=== PATIENT | female | born 1940 | race American Indian/Alaskan Native ===

== ENCOUNTER → 2021-08-06 | Outpatient (CLI) | payer OTHER ==
[~2021-08-06] MED LIST: ACETAMINOPHEN500 MG PO; ADULT LOW DOSE81 MG PO; CAL MAG ZINC +1 EACH PO; CARVEDILOL3.125 MG PO; CARVEDILOL6.25 MG PO; FISH OIL 1,2001 EAC4 PO; IBUPROFEN 200200 M1 PO; LISINOPRIL10 MG PO; MIRALAX119 GM PO; OMEPRAZOLE40 MG PO; OXAZEPAM 15 MG15 M1 PO; TIROSINT100 MCG PO; TRAMADOL 50 MG50 MG PO; TYLENOL EXTRA500 MG PO; VITAMIN D400 UNI1 PO; ZETIA10 MG PO; ZOCOR40 MG PO
[2021-08-06 14:19] LABS: HEMATOCRIT 45.2 % (37.0-47.0); HEMOGLOBIN 15.3 gm/dL (12.0-15.0); MCH 34.5 pg (26.0-34.0); MCHC 33.9 g/dL (28.0-37.0); MCV 101.7 fL (80.0-100.0); RBC 4.45 mil/uL (4.20-5.00); WBC 7.8 thou/uL (4.0-11.0)
[2021-08-06 14:33] LABS: ALBUMIN 3.5 g/dL (3.4-5.0); CALCIUM 9.5 mg/dL (8.5-10.1); INR 0.95; POTASSIUM 4.6 mmol/L (3.5-5.1); PROTIME 10.4 Seconds (10.5-12.1)
[2021-08-07 08:39] LABS: URINE BLOOD 3+ (Negative); URINE CLARITY CLOUDY; URINE COLOR YELLOW; URINE GLUCOSE-RANDOM* NEGATIVE (Negative); URINE KETONES 1+ (Negative); URINE PROTEIN (DIPSTICK) TRACE (Negative); URINE SPECIFIC GRAVITY >= 1.030 (1.005-1.035); URINE UROBILINOGEN 0.2 E.U./dl (0.2-1.0)
[2021-08-07 08:41] LABS: URINE LEUKOCYTES-REFLEX 2+ (Negative); URINE NITRITE-REFLEX POSITIVE (Negative)
[2021-08-07 08:43] LABS: ICTOTEST (BILI CONFIRMATORY) Negative (Negative); URINE BILIRUBIN NEGATIVE (Negative)
[2021-08-07 08:50] LABS: SQUAMOUS 0-3 Few /LPF (0-3)
[2021-08-07 08:52] LABS: HYALINE CASTS 0-3 Few /LPF (None Seen)
[2021-08-07 08:54] LABS: URINE WBC-REFLEX >25 Many /HPF (0-5)
[2021-08-07 08:55] LABS: URINE RBC 1-2 Rare /HPF (NONE SEEN)
[2021-08-07 08:57] LABS: CALCIUM OXALATE 0-3 Few /LPF (None Seen)
[2021-08-07 09:00] LABS: BACTERIA-REFLEX >30 Many /HPF (None Seen)
== END ==
LOC: PAC 10:17
PROVIDERS: ATTEND Orthopaedic Surgery
DX: M16.12 Unilateral primary osteoarthritis, left hip (principal)

== ENCOUNTER 2021-08-11 12:03 | Observation (INO) | payer OTHER ==
[~2021-08-11] VITALS: Ht 147.3 cm; Wt 59.0 kg
--- NOTE | ~2021-08-11 | O ---
[facility] [place] [address] OPERATIVE REPORT Name: SAMINA ODONNELL Room #: 433-I [facility]#: [id number] Admission: 08/11/21 Attend Phys: Javon Aldrich MD Discharge: Date of : 36 Report #: [id number] THIS REPORT FOR: cc: Clair Preston Laura FNP Abraham, Scott M. MD ~ DATE OF SERVICE: 08/11/2021 PREOPERATIVE DIAGNOSIS: Left hip osteoarthritis. POSTOPERATIVE DIAGNOSIS: Left hip osteoarthritis. PROCEDURE: Left total hip arthroplasty. SURGEON: Javon Aldrich MD STRENGTH AND CONDITIONING COACH: Alejandra Samano PA-C. INDICATION FOR STRENGTH AND CONDITIONING COACH: Throughout the case, extensive retraction, manipulation of the hip including dislocation and reduction was required. This was afforded to me by my social services assistant. ANESTHESIA: LMA. IMPLANTS: A [employer] size 12 high offset Synergy cemented stem, a size 48 R3 acetabular cup with one acetabular screw and a size 32 -3 cobalt chrome head. ESTIMATED BLOOD LOSS: 200 mL. COMPLICATIONS: None. SPECIMENS: None. CONDITION UPON LEAVING THE OR: Stable. INDICATIONS FOR PROCEDURE: The patient is an 81-year-old female with severe left hip osteoarthritis. She had failed conservative measures for this and after discussion with her, she elected for left total hip arthroplasty. DESCRIPTION OF PROCEDURE: Risks, benefits, alternatives, complications were discussed in detail with the patient including but not limited to risk of anesthesia, risk of damage to nerves, arteries, blood vessels, risk for infection, bleeding, risk for leg length discrepancy, instability and need for reoperation. Informed consent was obtained from the patient. Left hip was appropriately marked in preoperative holding area. IV Ancef was given for [facility] [address] [place] [address] OPERATIVE REPORT Name: SAMINA ODONNELL Room #: 433-I [facility]#: [id number] Admission: 08/11/21 Attend Phys: Javon Aldrich MD Discharge: Date of : 36 Report #: [id number] preoperative antibiotics. She was brought to the operating room and placed in supine position on the operating table. LMA anesthesia was induced without complication. She was then placed in the right lateral decubitus position with the left hip uppermost. Left hip and lower extremity were then prepped and draped in normal sterile fashion. Timeout was performed properly identifying the patient and procedure as well as the instrumentation and implants. All in the operating room were in agreement. Standard posterior approach to the left hip was made with 10 blade through the skin. Dissection was taken down to fascia with Bovie cautery and Chen elevator was used to clean off the fascia. Fresh 10 blade was used to make a fascial incision. This was taken proximally and distally with curved Jiménez scissor. Charnley retractor was placed. Trochanteric bursa was taken down with Bovie cautery. Piriformis tendon was identified, tagged and taken down with Bovie. Short external rotators were also taken down with Bovie cautery. Capsulotomy was made and capsule ends were tagged for later repair. Hip was dislocated. There was extensive osteoarthritic change of the femoral head. Deep acetabular retractors were placed. Labrum was removed sharply. Pulvinar was removed with Bovie cautery. Acetabulum was then sequentially reamed up to a size 48, at which point there was excellent bleeding cancellous bone. A size 47 trial cup was placed, found to have a good fit. Final size 48 R3 acetabular cup was placed and seated. II acetabular screws were placed for backup fixation and a polyethylene liner for a size 32 head was placed. Attention was turned to the femur. This was reamed and broached up to a size 12, at which point the size 12 broach was stable, was trialed with a high offset neck and a 32+0 head. Hip was reduced, taken through range of motion, found to be stable, found to be somewhat tight anteriorly and long, hip was dislocated. This was trialed with a 32 -3 head. Hip was reduced, taken through range of motion, found to be stable, found to be slightly longer on the left compared to the right, but she does have known osteoarthritis in the right hip and it was felt that this would be acceptable, particularly if and when we do a right hip replacement with her. Hip was dislocated. The broach was removed. Final size 12 high offset Synergy stem was cemented in place using standard cementation techniques. After the cement cured, this was trialed with a 32 -3 head. Hip was reduced, taken through range of motion, found to be stable. Hip was dislocated one last time and a final size 32 -3 cobalt chrome head was placed. The hip was thoroughly irrigated with normal saline. Periarticular injection consisting of morphine, ropivacaine, epinephrine, Toradol was placed around the hip joint capsular tissues, a gram of vancomycin was placed deep in the joint capsule and piriformis were repaired with 0 FiberWire. Fascia was closed with 0 Vicryl. Skin was closed with 2-0 Vicryl, skin staple and a TIFFANIE dressing was applied. The patient tolerated this [facility] [address] [place] [address] OPERATIVE REPORT Name: SAMINA ODONNELL Room #: 433-I [facility] [place]#: [id number] Admission: 08/11/21 Attend Phys: Javon Aldrich MD Discharge: Date of : 36 Report #: [id number] procedure well and went to recovery room under care of Anesthesia postoperatively. By: [id number] Javon Aldrich MD /nt
[2021-08-11 12:51] LABS: URINE BILIRUBIN NEGATIVE (Negative); URINE BLOOD TRACE (Negative); URINE CLARITY TURBID; URINE COLOR YELLOW; URINE GLUCOSE-RANDOM* NEGATIVE (Negative); URINE KETONES NEGATIVE (Negative); URINE LEUKOCYTES 2+ (Negative); URINE NITRITE POSITIVE (Negative); URINE PROTEIN (DIPSTICK) NEGATIVE (Negative); URINE UROBILINOGEN 0.2 E.U./dl (0.2-1.0)
[2021-08-11 13:00] VITALS: BP 116/62
[2021-08-11 13:18] LABS: CASTS None Seen /LPF (None Seen); SQUAMOUS 4-10 Moderate /LPF (0-3)
[2021-08-11 13:19] LABS: CRYSTALS None Seen /LPF (None Seen); URINE RBC None Seen /HPF (NONE SEEN)
[2021-08-11 13:20] LABS: URINE WBC >25 Many /HPF (NONE SEEN)
[2021-08-11 13:21] LABS: BACTERIA 1-9 Few /HPF (None Seen)
[2021-08-11 21:07] VITALS: BP 131/75
--- NOTE | 2021-08-12 02:40 | NUR ---
PATIENT AOX4 MAKES NEEDS KNOWN. PATIENT USING BEDSIDE COMMODE. PATIENT USING HIP PRECAUTION WHEN USING BEDSIDE COMMODE AND I BED. PAIN CONTROLLED THIS SHIFT. PATIENT LEFT HIP HAS A TIFFANIE DRESSING. DRESIG IS C/D/I. PATIENT HAS [employer] [facility]ES ON AND SCD. FALL PRECAUTION IN PLACE. PATIENT IN BED ASLEEP AT THIS TIME BREATHING REGULAR AND UNLANOURED.
[2021-08-12 08:19] VITALS: BP 132/80
--- NOTE | 2021-08-12 12:24 | NUR ---
Cm notified by physical therapy that she has walker already and anticipate output rehab. Dx: Left hip, post op day one. Will cont. following as needed.
[2021-08-12 13:40] VITALS: BP 132/80
== END 2021-08-12 15:32 | disposition home or self-care (01) ==
LOC: OR 12:03 → 4S 17:38 → OR 17:39 → 4S 08-12 15:32 → OR 08-13 10:16
PROVIDERS: ADMIT Orthopaedic Surgery; ATTEND Orthopaedic Surgery
DX: M16.12 Unilateral primary osteoarthritis, left hip (principal); Z20.822 Contact with and (suspected) exposure to COVID-19; Z23 Encounter for immunization; Z79.899 Other long term (current) drug therapy
CPT/HCPCS: 10102; 50010; 50101; 50382; 50414; 51057; 51130; 51225; 51226; 51412; 53000; 53078; 53367; 56460; 56524; 56528; 56530; 57095; 57103; 62110; 62900; 70005